=== PATIENT | female | born 1975 | race Caucasian/White ===

== ENCOUNTER 2019-06-06 11:47 | Emergency (ER) | payer MEDICAID ==
[~2019-06-06] VITALS: Ht 154.9 cm; Wt 115.0 kg
--- NOTE | 2019-06-06 12:23 | NUR ---
PT HAS CO SORE THROAT, COUGH W SPUTUM, HOARSE VOICE FOR 4 DAYS, FAMILY WAS RECENTLY SICK. DENIES N/V/D. DENIES SOB OR STAFF NURSE. FEVERS PRESENT. PT IS LETHARGIC. FAMILY AT BEDSIDE. EKG IN PROCESS, VS HR 140 SINUS, BP 122/71, RA 92
[2019-06-06] MEDS ORDERED: SODIUM CHLORIDE 0.9% 1,000 ML IV ONE (12:47)
[2019-06-06 12:50] LABS: RAPID INFLUENZA A POSITIVE (Negative); RAPID INFLUENZA B Negative (Negative)
[2019-06-06] MEDS ORDERED: SODIUM CHLORIDE 0.9% 1,000ML IVBOLUS ONE (13:00)
[2019-06-06] MEDS ORDERED: SODIUM CHLORIDE FLUSH 10ML SYR IVF ONE (13:00)
[2019-06-06] MEDS ORDERED: ACETAMINOPHEN 325 MG TABLET PO ONE (13:00)
[2019-06-06] MEDS ORDERED: ACETAMINOPHEN 500 MG TABLET ONE (13:00)
--- NOTE | 2019-06-06 13:03 | NUR ---
IV ESTABLISHED, IVF INFUSING, MEDICATED PER ORDERS. SHRIMP TRAWLER APPLIED
[2019-06-06 13:12] LABS: MEAN CORPUSCULAR HEMOGLOBIN 30.8 pg (27.0-34.8); MEAN CORPUSCULAR HGB CONC 34.4 g/dL (32.4-35.8); MEAN CORPUSCULAR VOLUME 89.7 fL (80-100); MEAN PLATELET VOLUME 7.8 fL (7.4-10.4); PLATELET COUNT 220 x10^3/uL (130-400); RED BLOOD COUNT 4.56 x10^6/uL (3.82-5.3); RED CELL DISTRIBUTION WIDTH 12.4 % (9.6-15.2)
[2019-06-06 13:25] LABS: ALBUMIN 3.1 g/dL (3.4-5.0); ANION GAP 8 mmol/L (5-15); CALCIUM 8.5 mg/dL (8.5-10.1); CHLORIDE 103 mmol/L (98-107)
[2019-06-06 13:28] LABS: ALANINE AMINOTRANSFERASE 30 U/L (12-78); ALKALINE PHOSPHATASE 72 U/L (45-117); BILIRUBIN,TOTAL 0.4 mg/dL (0.2-1.0); CREATININE 1.31 mg/dL (0.55-1.02)
[2019-06-06 13:51] LABS: MD YES
[2019-06-06 13:52] LABS: <PLATELET ESTIMATE> ADEQUATE; <RBC MORPHOLOGY> NORMAL; BAND#(MANUAL) 2.09 x10^3/uL; BANDS%(MANUAL) 14 % (0-7); LYMPHS% (MANUAL) 4 % (22-44); METAMYELOCYTES% (MANUAL) 2 % (0-1); SEG#(MANUAL) 11.92 x10^3/uL (1.8-6.8); SEGS% (MANUAL) 80 % (42-75)
[2019-06-06 13:53] LABS: <PLT MORPHOLOGY> NORMAL PLT MORPH
[2019-06-06] MEDS ORDERED: BICILLIN-LA 1,200,000 UNITS/2 ML IM ONE (14:30)
[2019-06-06] MEDS ORDERED: PLEASE ENTER ALLERGIES MC SCH (14:30)
[2019-06-06 14:41] VITALS: BP 111/61
--- NOTE | 2019-06-06 14:41 | NUR ---
BREAK RN: PT VISITING WITH FAMILY IN ROOM. [employer]ED [employer] DELIVERY SYSTEM ON. SINSU TACH NOTED. CALL LIGHT IN PLACE. WILL CONTINUE TO MONIOR WHILE PRIMARY RN IS ON BREAK.
--- NOTE | 2019-06-06 14:45 | NUR ---
ALONSO RN: DR ROMERO AWARE OF VS
--- NOTE | 2019-06-06 16:23 | NUR ---
Patient/Caregiver given discharge instructions and they have confirmed that they understand the instructions. Patient ambulatory with steady gait.
== END 2019-06-06 16:26 | disposition home or self-care (01) ==
LOC: ED 16:15
DX: J10.1 Influenza due to other identified influenza virus with other respiratory manifestations (principal); R50.9 Fever, unspecified; R09.3 Abnormal sputum; R00.0 Tachycardia, unspecified
CPT/HCPCS: 36415; 71045; 80053; 83605; 85025; 87400; 87880; 93005; 96372; 99285; J0561; J7030